=== PATIENT | female | born 1945 | race Caucasian/White ===

== ENCOUNTER 2023-12-25 08:57 | Emergency (ER) | payer MEDICARE, OTHER, SELFPAY ==
[2023-12-25] VITALS (10 sets, daily range): BP systolic 144–179; BP diastolic 65–77; PULSE 60–72; RESP 18–43; TEMP 36.9; O2SAT 96–99; BMI 30.8
--- NOTE | 2023-12-25 09:11 | DI.CT.S_ITS ---
PROCEDURE: CT CERVIAL SPINE without CON INDICATIONS: pain s/p syncopal episode TECHNIQUE: 3 mm thick sections acquired through the levels of interest. Sagittal and coronal reformats were then constructed. For radiation dose reduction, the following was used: automated exposure control. COMPARISON: None. FINDINGS: Image quality: Excellent. Bones: Cervical spine alignment is anatomic. No acute fracture or dislocation. No suspicious intraosseous lesions. Loss of disc height, degenerative endplate changes and bilateral uncovertebral hypertrophic changes are noted throughout cervical spine more notably at C6-7 level. Soft tissues: Os paraspinous soft tissue abnormalities. No neck soft tissue abnormalities. The included portion of thyroid gland is within normal limits. Bilateral lung apices show no pneumothorax. IMPRESSION: 1. No acute cervical spine fracture or dislocation. 2. [id number] degenerative disc disease throughout cervical spine as above. Dictated by: Edvin Rizzo M.D. on 12/25/2023 at 9:59 Approved by: Edvin Rizzo M.D. on 12/25/2023 at 10:01
--- NOTE | 2023-12-25 09:12 | DI.CT.S_ITS ---
PROCEDURE: CT HEAD/BRAIN WO CON INDICATIONS: head strike to back of head s/p syncope TECHNIQUE: Noncontrast 4.5 mm thick angled axial sections acquired from the foramen magnum to the vertex, with coronal and sagittal reformats. For radiation dose reduction, the following was used: automated exposure control, adjustment of mA and/or kV according to patient size. COMPARISON: None. FINDINGS: Image quality: Diagnostic. CSF spaces: Basal cisterns are patent. No extra-axial fluid collections. The ventricles are symmetric in size and shape. Brain: No intracranial bleeds or masses. There is cerebral volume loss for age, with resultant ventricular and sulcal prominence. There are periventricular and deep white matter chronic small vessel ischemic changes. There is intracranial internal carotid artery atherosclerosis. Skull and face: Posterior high parietal scalp hematoma and swelling is seen. Calvarium and visualized facial bones appear intact, without suspicious lesions. Sinuses: Visualized sinuses and mastoids are clear. IMPRESSION: 1. No acute intracranial pathology. 2. Age related volume loss and moderate white matter chronic small vessel ischemic changes. 3. Posterior high parietal scalp hematoma and swelling. No acute skull fracture. Dictated by: Edvin Rizzo M.D. on 12/25/2023 at 9:57 Approved by: Edvin Rizzo M.D. on 12/25/2023 at 9:58
--- NOTE | 2023-12-25 09:12 | DI.RAD.S_ITS ---
PROCEDURE: XR CHEST 1V INDICATIONS: syncope TECHNIQUE: One view of the chest was acquired. COMPARISON: None. FINDINGS: Surgical changes and devices: None. Lungs and pleura: Lungs are clear. No pleural effusions or pneumothorax. Mediastinum: Mediastinal contours appear normal. Heart size is enlarged. Bones and chest wall: No suspicious bony lesions. Overlying soft tissues appear unremarkable. IMPRESSION: No acute cardiopulmonary pathology. Dictated by: Edvin Rizzo M.D. on 12/25/2023 at 10:02 Approved by: Edvin Rizzo M.D. on 12/25/2023 at 10:04
--- NOTE | 2023-12-25 09:14 | ED_ITS ---
HPI - Syncope General Chief Complaint: Syncope Stated Complaint: Syncope, Head lac Time Seen by Provider: 12/25/23 08:58 History of Present Illness HPI narrative: patient with a past medical history of scleroderma, comes into the ED via EMS from home for evaluation of syncopal episode. Patient states that she was in the bath tub about to take a shower when she syncopized. She states that she awoke in the bathroom. Family members helped her get up. She has not on any blood thinners, she denies any presyncopal symptoms. Denies any visual disturbances chest pain shortness breath fever chills nausea vomiting abdominal pain or any other GI/ symptoms at this time. At time of initial evaluation patient is alert and oriented x3, she is following all commands appropriately. she states that this has never happened in the past. Related Data Previous Rx's Medication Instructions Recorded metformin 500 mg tablet 500 mg PO DAILY #14 tabs 12/25/23 Allergies Allergy/AdvReac Type Severity Reaction Status Date / Time Carbamates Allergy Verified 12/25/23 11:31 Cephalosporins Allergy Verified 12/25/23 11:31 codeine Allergy Verified 12/25/23 11:31 diphenhydramine Allergy Verified 12/25/23 11:31 lidocaine Allergy Verified 12/25/23 11:31 morphine Allergy Verified 12/25/23 11:31 NSAIDS (Non-Steroidal Allergy Verified 12/25/23 11:31 Anti-Inflamma oseltamivir Allergy Verified 12/25/23 11:31 penicillin G Allergy Verified 12/25/23 11:31 Review of Systems Review of Systems Narrative: HEENT: Denies headache, eye drainage, eye irritation, head trauma, sore throat, voice change Cardiovascular: Denies any chest pain, palpitations, shortness of breath, tachycardia Respiratory: Denies any shortness of breath, cough, wheeze, stridor GI/: Denies any abdominal pain, nausea, vomiting, diarrhea, bright red blood per rectum, melanotic stools, urinary frequency, urinary retention, dysuria, hematuria MSK: Denies any joint pain, muscle pains, swelling Skin: Denies any rashes, lesions, discoloration Neuro: Denies any headache, lightheadedness, dizziness,weakness, Positive for syncope Psych: Denies SI/HI Patient History Social History Smoking Status: Never smoker Exam Narrative Exam Narrative: General: Cooperative, comfortable, well-developed, not in acute distress HEENT: Normocephalic, PERRLA, normal sclera, eyelids normal, patient with 1 cm laceration noted to the back of the head, not actively bleeding, no other palpable step-off gross deformities or any other signs of trauma Neck: Active full range of motion, atraumatic Chest: Normal to inspection, negative crepitus, no overlying erythema ecchymosis Respiratory: Normal respiratory effort, not in acute respiratory distress, clear to auscultation bilaterally negative cough, wheeze, tachypnea, rhonchi, rales Cardiology: Regular rate rhythm negative gallop, murmur, rubs GI/: Normal to inspection, soft, nonrigid, no tenderness to palpation, exam deferred MSK: Full range of active range of motion of all 4 extremities, patient without any tenderness to palpation of any bony prominences, moving all 4 extremities spontaneously neurovascular intact all compartments soft Skin: No rashes lesions noted Neuro: Alert awake oriented x3, moves all 4 extremities spontaneously, cranial nerves intact, able to answer all questions appropriately follows commands appropriately Psych: Cooperative, negative suicidal or homicidal ideations Initial Vital Signs Initial Vital Signs: Vital Signs Pulse Rate 69 12/25/23 09:04 Respiratory Rate 24 12/25/23 09:04 Blood Pressure 175/77 H 12/25/23 09:04 Pulse Oximetry 98 12/25/23 09:04 Procedures Laceration Repair Laceration 1: Time of procedure: 12:51 Site: scalp Size (cm): 3 Description: linear Skin layer closed with: other ( cory (4)) Course Course Course Narrative: patient was re-evaluated, no new complaints at this time, laceration repair was performed of the posterior head, 3 cm laceration was noted 4 cory were placed. Patient with low Parkman syncope score, patient with out any acute findings at this time, blood glucose was noted to be elevated, consistent with new onset diabetes, patient will be started on metformin and instructed to follow up outpatient with PCP for continued evaluation treatment of this. I did discuss possible need for admission given patient new to the area, however she states that she would prefer to follow-up outpatient. She was given strict return precautions and agrees to being discharged home with outpatient follow- up. Orders Ordered: ED Orders 12/25/23 09:10 Complete Blood Count AUTO DIFF Stat Comprehensive Metabolic Panel Stat Prothrombin Time INR Stat Troponin I Stat 12/25/23 09:11 CT cervical spine w con Stat EKG-12 Lead Stat 12/25/23 09:12 CT head/brain wo con Stat XR chest 1V Stat 12/25/23 10:36 Urinalysis Screen (Dip Only) Stat Sodium Chloride (Normal Saline 0.9%) 1,000 mls @ 150 mls/hr IV CONT VALERIANO Last Admin: 12/25/23 10:17 Dose: 150 mls/hr Documented By: RB Discontinued Medications Lidocaine/Epinephrine (Lidocaine 1% W/Epi) 4 ml INJ INTRA-OP ONE Stop: 12/25/23 10:53 Last Admin: 12/25/23 12:42 Dose: Not Given Documented By: IRAM Vital Signs Vital signs: Vital Signs - 8 hr 12/25/23 09:04 12/25/23 09:04 12/25/23 09:07 Temperature 98.4 F Pulse Rate 69 69 Respiratory Rate 24 18 Blood Pressure 175/77 H 175/77 H Pulse Oximetry 98 98 Oxygen Delivery Method Room Air 12/25/23 09:30 12/25/23 09:31 12/25/23 10:00 Temperature Pulse Rate 72 63 Respiratory Rate 24 27 H Blood Pressure 160/70 H Pulse Oximetry 97 99 Oxygen Delivery Method 12/25/23 10:30 12/25/23 10:36 12/25/23 10:36 Temperature Pulse Rate 62 64 Respiratory Rate 43 H 26 H Blood Pressure 179/71 H Pulse Oximetry 99 Oxygen Delivery Method 12/25/23 11:00 12/25/23 11:01 12/25/23 11:01 Temperature Pulse Rate 60 60 Respiratory Rate 22 21 Blood Pressure 144/67 H Pulse Oximetry 97 96 Oxygen Delivery Method Room Air 12/25/23 11:30 12/25/23 11:30 Temperature Pulse Rate 60 Respiratory Rate 22 Blood Pressure 158/65 H Pulse Oximetry 97 Oxygen Delivery Method MDM - Syncope Differential Diagnosis Differential diagnosis: Likely vasovagal syncope, complete atrioventricular block, subarachnoid hemorrhage and dehydration Condition is:: Improved Lab Data 12/25/23 09:10 12/25/23 09:10 Labs: Lab Results 12/25/23 12/25/23 Range/Units 09:10 10:36 WBC 8.0 (4.5-11.0) X10^3/uL RBC 4.54 (4.0-5.2) X10^6/uL Hgb 11.4 L (12.0-16.0) g/dL Hct 35.4 L (36-46) % MCV 77.9 L (80-100) fL MCH 25.1 L (26-34) PG MCHC 32.2 (30-36) % RDW 15.6 H (11.6-14.8) % Plt Count 327 (150-400) X10^3/uL Neut % (Auto) 62.9 (50-75) % Lymph % (Auto) 25.7 (25-40) % [place] % (Auto) 6.8 (3-14) % Eos % (Auto) 3.7 (2-4) % Baso % (Auto) 0.9 (0-2) % Neut # (Auto) 5000 (4576-6775) /uL Lymph # (Auto) 2000 (5267-1849) /uL [place] # (Auto) 500 (0-900) /uL Eos # (Auto) 300 (0-450) /uL Baso # (Auto) 100 (0-100) /uL PT 11.9 (9.4-12.5) SECONDS INR 1.0 (0.9-1.3) Sodium 136 L (137-145) mmol/L Potassium 4.1 (3.4-5.1) mmol/L Chloride 104 (98-107) mmol/L Carbon Dioxide 24 (22-32) mmol/L BUN 19 H (7-17) mg/dL Creatinine 0.93 (0.52-1.04) mg/dL Estimated GFR > 60 (>60) mL/min BUN/Creatinine Ratio 20.4 (6-22) Glucose 360 H (80-110) mg/dL Calcium 8.8 (8.4-10.2) mg/dL Total Bilirubin 0.4 (0.2-1.3) mg/dL AST 21 (14-36) IU/L ALT 19 (<35) IU/L Alkaline Phosphatase 114 (38-126) U/L Troponin I < 0.012 (0.01-0.034) ng/mL Total Protein 6.7 (6.3-8.2) g/dL Albumin 3.9 (3.5-5.0) g/dL Globulin 2.8 (1.7-4.1) g/dL Albumin/Globulin Ratio 1.4 (1.0-2.8) Urine Color Yellow Urine Appearance Clear Urine pH 5.5 (4.5-8.0) Ur Specific [place] 1.015 (1.000-1.035) Urine Protein Negative (Negative) Urine Glucose (UA) 3+ H (Negative) g/dL Urine Ketones Negative (NEGATIVE) Urine Occult Blood Negative (Negative) Urine Nitrate Negative (Negative) Urine Bilirubin Negative (NEGATIVE) Urine Urobilinogen 0.2 (0.2) E.U./dL Ur Leukocyte Esterase Negative (NEGATIVE) Point of Care Testing Glucose POC 359 Urine Dip Bedside Urine Glucose 1000 mg/dl Bedside Urine Bilirubin - Negative Bedside Urine Ketone - Negative Urine Specific [place] 1.020 Bedside Urine Occult Blood - Negative Bedside Urine pH 5.5 Bedside Urine Protein - Negative Bedside Urine Urobilinogen - Negative Bedside Urine Nitrite - Negative Bedside Urine Leukocytes - Negative Esterase ECG Data Attestation: I personally reviewed and interpreted this ECG as follows: Interpretation: EKG interpreted by ED physician sinus at 68 beats per minute, QTC 463, normal axis nonspecific ST changes no STEMI MDM Narrative Medical decision making narrative: patient is a 78-year-old female with past medical history of scleroderma, hypertension, comes into the ED from home via EMS for evaluation of syncopal episode, states that she was taking a shower and had a syncopal episode, states that she woke up on the floor, at initial evaluation patient is alert and oriented x3 answers all questions appropriately moves all 4 extremities spontaneously does have a 3 cm laceration to the back at the had not actively bleeding was repaired with [address] scan of head and neck without any acute findings of intracranial hemorrhage, or cervical neck fractures. Lab work was unremarkable, patient with low Parkman syncope score. patient was noted to have elevated glucose in the 300s, patient states that she does not have a history of diabetes, however given elevated random blood glucose meeting criteria for diabetes will treat for diabetes, sent home with 500 mg metformin b.i.d. and instructed to follow up with PCP and Cardiology for continued evaluation treatment of her symptoms. Patient was given strict return precautions he verbalized understanding of this, did offer patient admission however she states that she would prefer to go home, I informed risks and benefits of this change decision-making was performed and patient will be discharged home with outpatient follow-up Discharge Plan Departure Patient Disposition: Home Clinical Impression: Syncope and collapse, Hyperglycemia Closed head injury Qualifiers: Encounter type: initial encounter Qualified Code(s): S09.90XA - Unspecified injury of head, initial encounter Laceration of head Qualifiers: Encounter type: initial encounter Location of open wound of head: scalp Foreign body presence: without foreign body Qualified Code(s): S01.01XA - Laceration without foreign body of scalp, initial encounter Activity Restrictions/Additional Instructions: Please follow-up with primary care and Cardiology for continued evaluation treatment of your symptoms, you have 4 cory that need to be removed in about 7 days Please read the discharge instructions sheet carefully and bring all papers to all doctor follow-up visits, as it may contain information that your doctor may want to see. Disease processes change and evolve, if your symptoms worsen or if you develop any new symptoms that are concerning to you please return for evaluation. Your evaluation today does not show any evidence of any life- threatening/serious illnesses requiring admission to the hospital or surgery. Please follow-up with your doctor for re-evaluation in approximately 1 day. Seek immediate medical attention for any worrisome symptoms. Prescriptions: New metformin 500 mg tablet 500 mg PO DAILY Qty: 14 0RF Stand Alone Forms: Patient Portal/API
--- NOTE | 2023-12-25 09:20 | EKG_ITS ---
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
[2023-12-25 09:21] LABS: Add Manual Diff / Slide Review NO; Basophils Absolute Auto 100 /uL (0-100); Basophils Percent Auto 0.9 % (0-2); Eosinophils Absolute Auto 300 /uL (0-450); Eosinophils Percent Auto 3.7 % (2-4); Hematocrit 35.4 % (36-46); Hemoglobin 11.4 g/dL (12.0-16.0); Lymphocytes Absolute Auto 2000 /uL (1100-4500); Lymphocytes Percent Auto 25.7 % (25-40); Mean Corpuscular HGB Conc 32.2 % (30-36); Mean Corpuscular Hemoglobin 25.1 PG (26-34); Mean Corpuscular Volume 77.9 fL (80-100); Monocytes Absolute Auto 500 /uL (0-900); Monocytes Percent Auto 6.8 % (3-14); Neutrophils Absolute Auto 5000 /uL (1500-7000); Neutrophils Percent Auto 62.9 % (50-75); Platelet Count 327 X10^3/uL (150-400); Red Blood Cell Count 4.54 X10^6/uL (4.0-5.2); Red Cell Distribution Width 15.6 % (11.6-14.8)
[2023-12-25 09:28] LABS: Prothrombin Time 11.9 SECONDS (9.4-12.5)
--- NOTE | 2023-12-25 09:33 | PC.NURSE ---
Patient left department with x-ray tech.
[2023-12-25 09:34] LABS: Alanine Aminotransferase 19 IU/L (<35); Albumin 3.9 g/dL (3.5-5.0); Albumin Globulin Ratio 1.4 (1.0-2.8); Alkaline Phosphatase 114 U/L (38-126); Aspartate Aminotransferase 21 IU/L (14-36); BUN Creatinine Ratio 20.4 (6-22); Bilirubin Total 0.4 mg/dL (0.2-1.3); Blood Urea Nitrogen 19 mg/dL (7-17); Calcium 8.8 mg/dL (8.4-10.2); Carbon Dioxide 24 mmol/L (22-32); Chloride 104 mmol/L (98-107); Estimated Glomerular Filt Rate > 60 mL/min (>60); Globulin 2.8 g/dL (1.7-4.1); Glucose 360 mg/dL (80-110); HEMOLYSIS < 15 (0-50); Potassium 4.1 mmol/L (3.4-5.1); Sodium 136 mmol/L (137-145); Total Protein 6.7 g/dL (6.3-8.2)
[2023-12-25 09:45] LABS: Troponin I < 0.012 ng/mL (0.01-0.034)
[2023-12-25] MEDS: SODIUM CHLORIDE 0.9% 1,000 ML 150 ML IV (10:17)
[2023-12-25 10:57] LABS: Appearance Urine UA CLEAR; Bilirubin Urine UA NEGATIVE (NEGATIVE); Color Urine UA YELLOW; Glucose Urine UA 3+ g/dL (Negative); Ketones Urine UA NEGATIVE (NEGATIVE); Leukocyte Esterase Urine UA NEGATIVE (NEGATIVE); Nitrite Urine UA NEGATIVE (Negative); Occult Blood Urine UA NEGATIVE (Negative); Protein Urine UA NEGATIVE (Negative); Specific Gravity Urine UA 1.015 (1.000-1.035); Urobilinogen Urine UA 0.2 E.U./dL (0.2)
[2023-12-25 10:59] LABS: pH Urine UA 5.5 (4.5-8.0)
--- NOTE | 2023-12-26 11:59 | CM.SWNOTE ---
ED UNDERGROUND HEAVY EQUIPMENT OPERATOR Note: UNDERGROUND HEAVY EQUIPMENT OPERATOR was consulted after pt was discharged from the ED to assist with establishing with a new PCP and a cardiology referral. UNDERGROUND HEAVY EQUIPMENT OPERATOR reviewed chart and found that pt had an appt scheduled as a new patient with Dr. Koki Fragoso on 12/29/2023. UNDERGROUND HEAVY EQUIPMENT OPERATOR called pt and left a voice message, providing extension for pt to call if she has any more questions re: establishing PCP. Plan: Pt discharged home from ED on 12/25/2023. Pt to follow up with new PCP and outpatient cardiology referral. PARTH Pagan
== END 2023-12-25 12:55 | disposition home or self-care (01) ==
PROVIDERS: Emergency Provider Student in an Organized Health Care Education/Training Program
DX: S01.01XA Laceration without foreign body of scalp, initial encounter (principal); S09.90XA Unspecified injury of head, initial encounter; R55 Syncope and collapse; R73.9 Hyperglycemia, unspecified
CPT/HCPCS: 12002; 36415; 70450; 71045; 72126; 80053; 81003; 82962; 84484; 85025; 85610; 93005; 96360; 96361; 99284; 99285

== ENCOUNTER → 2023-12-29 10:17 | Outpatient (CLI) | payer MEDICARE, OTHER, SELFPAY ==
[2023-12-29 12:28] LABS: Cholesterol 251 mg/dL (140-199); HDL Cholesterol 38 mg/dL (40-60); LDL Cholesterol Calculated 144 mg/dL (<100); Triglycerides 346 mg/dL (35-150)
[2023-12-29 12:44] LABS: Hemoglobin A1C% w Est Avg Glu 8.2 % (4.0-6.0)
[2023-12-29 12:55] LABS: TSH w/ Reflex to FT4 0.04 uIU/mL (0.47-4.68)
[2023-12-29 15:18] LABS: Free T4, Direct Thyroxine 1.07 ng/dL (0.78-2.19)
[2023-12-29 15:42] LABS: Microalbumin Urine Random 3.7 mg/dL (0-1.6)
[2023-12-29 16:26] LABS: Hep C Virus Ab w/Reflex Quant NEGATIVE s/c (NEGATIVE)
[2023-12-29 16:39] LABS: Creatinine Urine Random 376.15 mg/dL
== END ==
PROVIDERS: PCP Family Medicine; Referring Provider Family Medicine; Visit Provider Family Medicine
DX: R73.9 Hyperglycemia, unspecified (principal); E03.9 Hypothyroidism, unspecified; R55 Syncope and collapse; S09.90XA Unspecified injury of head, initial encounter
CPT/HCPCS: 36415; 80061; 82043; 82570; 83036; 84439; 84443; 86803

== ENCOUNTER → 2024-02-09 08:02 | Outpatient (CLI) | payer MEDICARE, OTHER, SELFPAY ==
--- NOTE | 2024-02-09 08:03 | DI.ECHO.S_ITS ---
[facility]+ [facility] : : [address] : : [place] : : [id number] : : Phone: [phone] Echocardiogram Report + + :Name: BHARATH HARRIS Study Date: 02/09/2024 Height: 64 in : :[facility] ReadingLocation: Weight: 165 lb : : Gender: Female BSA: 1.8 m2 : :: 1945 Age: 79 yrs BP: 121/73 mmHg: :Reason For Study: SYNCOPE : :Ordering Physician: JUAN, : :MAO Performed By: Jennifer Marcus : :Referring: MAO MARTINEZ : + + Interpretation Summary The left ventricle is normal in size and wall thickness. The left ventricular ejection fraction is normal. The ejection fraction is estimated to be 60-65%. The right ventricle is normal in size and function. There is mild tricuspid regurgitation. The right ventricular systolic pressure is estimated to be at least 19 mmHg based on an estimated right atrial pressure of 3 mm Hg. Procedure: A two-dimensional transthoracic echocardiogram with color flow and Doppler was performed. The study quality was technically adequate. There is no prior echocardiogram noted for this patient. The patient was in sinus rhythm with heart rates between 53-63 bpm during the exam. Left Ventricle: The left ventricle is normal in size and wall thickness. There is no thrombus. The ejection fraction is estimated to be 60-65%. The left ventricular ejection fraction is normal. There are no focal wall motion abnormalities. MV E/A: 0.74 Med Peak E' Andres: 4.2 cm/sec E/E' med: 17.3. No significant advanced diastolic dysfunction. Right Ventricle: The right ventricle is normal in size and function. Atria: The left atrial size is normal. Right atrial size is normal. There is no Doppler evidence for an interatrial shunt. Mitral Valve: The mitral valve is normal in structure and function. There is trace mitral regurgitation. Aortic Valve: The aortic valve is trileaflet. The aortic valve opens well. There is no aortic valve stenosis. No aortic regurgitation is present. Tricuspid Valve: The tricuspid valve is normal in structure and function. There is mild tricuspid regurgitation. The right ventricular systolic pressure is estimated to be at least 19 mmHg based on an estimated right atrial pressure of 3 mm Hg. Pulmonic Valve: The pulmonic valve leaflets are thin and pliable; valve motion is normal. There is a trace or physiologic amount of pulmonic regurgitation. Great Vessels: The aortic root is normal size. The dimensions of the ascending aorta are normal. The IVC is of normal diameter and collapses greater than 50% with a sniff. This suggests a low right atrial pressure of 3 mm Hg. Pericardium/ Pleura There is no pericardial effusion. There is no pleural effusion. MMode/2D Measurements & Calculations LVIDd: 4.9 cm LVOT diam: 2.0 cm LVIDs: 3.1 cm Ao root diam: 2.8 cm FS: 36.2 % asc Aorta Diam: 3.2 cm IVSd: 0.91 cm Ao Arch Diam (Prox Trans): 2.7 cm LVPWd: 0.93 cm LV callejas. diameter/BSA (cm/m^2): 2.7 LV sys. diameter/BSA (cm/m^2): 1.7 LA A2 area: 17.6 cm2 RA long axis: 4.7 cm LA A4 area: 15.0 cm2 RA area: 11.8 cm2 LA length (vol): 4.6 cm RA vol: 25.2 ml LA vol: 48.3 ml RA : 14.0 ml/m2 LA vol index: 26.8 ml/m2 IVC diam: 1.2 cm RVD1 (basal): 3.4 cm RVD2 (mid): 2.7 cm TAPSE: 2.0 cm Doppler Measurements & Calculations Ao V2 max: 172.1 cm/sec LVOT Max Andres: 113.0 cm/sec Ao V2 mean: 115.0 cm/sec LV V1 max P.1 mmHg Ao max P.8 mmHg LV V1 VTI: 24.9 cm Ao mean P.1 mmHg EFREN(I,D): 2.3 cm2 Ao V2 VTI: 34.8 cm EFREN(V,D): 2.1 cm2 sev ratio: 0.72 EFREN indexed to BSA (cm^2/m^2): 1.3 MV E max andres: 73.0 cm/sec TR max andres: 198.9 cm/sec MV A max andres: 99.3 cm/sec TR max P.8 mmHg MV E/A: 0.74 PA V2 max: 85.9 cm/sec Med Peak E' Andres: 4.2 cm/sec PA V2 mean: 65.3 cm/sec E/E' med: 17.3 PA mean P.8 mmHg Lat Peak E' Andres: 5.5 cm/sec PA pr(Accel): 48.2 mmHg E/E' lat: 13.2 E/e' average: 15.3 MV dec time: 0.27 sec MVA(VTI): 2.6 cm2 MV V2 mean: 45.2 cm/sec SV(LVOT): 80.4 ml MV mean P.0 mmHg MV V2 VTI: 30.6 cm Reading Physician:09:34 AM
--- NOTE | 2024-02-09 08:03 | DI.US.S_ITS ---
PROCEDURE: US CAROTID DOPPLER BI INDICATIONS: HISTORY OF SYNCOPE TECHNIQUE: Color and pulse Doppler interrogation was performed of both carotid systems, with image documentation and velocity measurements. COMPARISON: None. FINDINGS: Stenosis calculations are based on SRU (Society of Radiologists in Ultrasound) criteria. Right side: Brachial blood pressure: 120/63 mm Hg. Common carotid artery peak systolic velocity: 113 cm/sec. Internal carotid artery peak systolic velocity: 66 cm/sec. Internal carotid artery end diastolic velocity: 24 cm/sec. External carotid artery peak systolic velocity: 91 cm/sec. ICA/CCA peak systolic ratio: 0.6 . Feliz scale imaging description: No significant plaque Percent internal carotid artery stenosis: No significant stenosis. Vertebral artery: Flow direction is antegrade. Left side: Brachial blood pressure: 129/66 mm Hg. Common carotid artery peak systolic velocity: 97 cm/sec. Internal carotid artery peak systolic velocity: 122 cm/sec. Internal carotid artery end diastolic velocity: 29 cm/sec. External carotid artery peak systolic velocity: 89 cm/sec. ICA/CCA peak systolic ratio: 1.3 . Feliz scale imaging description: Mild atherosclerotic plaque. Tortuous internal carotid artery. Percent internal carotid artery stenosis: Less than 50% Vertebral artery: Flow direction is antegrade. Heterogeneous appearance of the thyroid is incidentally noted without a discrete nodule, which can be seen in the setting of prior thyroiditis. IMPRESSION: 1. Less than 50% stenosis of the left internal carotid artery. 2. No significant stenosis of the right internal carotid artery. 3. Antegrade flow in the vertebral arteries bilaterally. 4. Heterogeneous appearance of the thyroid without nodules is nonspecific but can be seen in the setting of thyroiditis. Approved by: Akil Vora M.D. on 02/09/2024 at 12:38
== END ==
PROVIDERS: PCP Family Medicine; Referring Provider Family Medicine; Visit Provider Family Medicine
DX: Z87.898 Personal history of other specified conditions (principal); I07.1 Rheumatic tricuspid insufficiency; I65.22 Occlusion and stenosis of left carotid artery
CPT/HCPCS: 93306; 93880

== ENCOUNTER → 2024-06-07 10:56 | Outpatient (CLI) | payer MEDICARE, OTHER, SELFPAY ==
[2024-06-07 13:09] LABS: Influenza A - CEPHEID Flu A NEGATIVE (NEGATIVE); Influenza B - CEPHEID Flu B NEGATIVE (NEGATIVE); Respiratory Syncytial Virus POSITIVE (Negative)
[2024-06-07 13:10] LABS: COVID-19 CEPHEID 4-PLEX PCR Negative (Negative)
== END ==
PROVIDERS: PCP Student in an Organized Health Care Education/Training Program; Referring Provider Physician Assistant; Visit Provider Physician Assistant
DX: R05.1 Acute cough (principal)
CPT/HCPCS: 0241U

== ENCOUNTER → 2024-06-12 18:17 | Outpatient (CLI) | payer MEDICARE, OTHER, SELFPAY ==
--- NOTE | 2024-06-12 18:20 | DI.RAD.S_ITS ---
PROCEDURE: XR CHEST 2V INDICATIONS: Cough TECHNIQUE: 2 views of the chest were acquired. COMPARISON: [facility], CR, XR CHEST 1V, 12/25/2023, 9:33. FINDINGS: Surgical changes and devices: None. Lungs and pleura: Lungs are clear. No pleural effusions or pneumothorax. Mediastinum: Mediastinal contours are normal. Heart size is enlarged. Bones and chest wall: No suspicious bony abnormalities. Soft tissues appear unremarkable. IMPRESSION: No acute cardiopulmonary pathology. Dictated by: Edvin Rizzo M.D. on 06/12/2024 at 19:08 Approved by: Edvin Rizzo M.D. on 06/12/2024 at 19:09
== END ==
PROVIDERS: PCP Student in an Organized Health Care Education/Training Program; Referring Provider Physician Assistant Surgical; Visit Provider Physician Assistant Surgical
DX: R05.9 Cough, unspecified (principal); J21.0 Acute bronchiolitis due to respiratory syncytial virus; I51.7 Cardiomegaly
CPT/HCPCS: 71046

== ENCOUNTER 2024-06-14 12:30 | Emergency (ER) | payer MEDICARE, OTHER, SELFPAY ==
[2024-06-14 12:32] VITALS: BP 142/65; PULSE 85; RESP 16; TEMP 36.8; O2SAT 98; BMI 29.2
--- NOTE | 2024-06-14 13:00 | DI.RAD.S_ITS ---
PROCEDURE: XR CHEST 2V INDICATIONS: 2 weeks cough and congestion TECHNIQUE: 2 views of the chest were acquired. COMPARISON: [facility], CR, XR CHEST 2V, 06/12/2024, 18:27. FINDINGS: Surgical changes and devices: None. Lungs and pleura: Lungs are clear. No pleural effusions or pneumothorax. Mediastinum: Mediastinal contours are normal. Heart size is normal. Bones and chest wall: No suspicious bony abnormalities. Soft tissues appear unremarkable. IMPRESSION: No acute cardiopulmonary abnormality is seen. Approved by: Carrie Bowers M.D.,Ph.D. on 06/14/2024 at 13:35
--- NOTE | 2024-06-14 13:29 | PC.NURSE ---
Patient returns due to increasing coughing and a greater amount of green mucus when she cough. Patient denies shortness of breath and is able to ambulate independently without noted distress.
--- NOTE | 2024-06-14 13:38 | ED_ITS ---
<Statement entered by Kyler Messer DO - 06/14/24 14:28> Dr. Messer: I was immediately available in the department for consultation. I did not actually see the patient. HPI - Recheck/Abnormal Lab/Rx General Chief Complaint: Recheck/Abnormal Lab/Rx Stated Complaint: feeling sick, doesn't know whats wrong Time Seen by Provider: 06/14/24 13:26 Source: patient Mode of arrival: Ambulatory History of Present Illness HPI narrative: Ms. Coello is a pleasant 79-year-old female with a past medical history of scleroderma, hypertension, Raynaud's, GERD who presents to the emergency department for upper respiratory symptoms x2 weeks. Patient states while she was traveling in [place]/[facility] she started developing a cough, sinus congestion. [place] returned to the [place] and was seen in the walk-in clinic on 06/07/2024 for these persistent symptoms and was diagnosed with RSV. She returned for worsening symptoms on 06/12/2024 and had a chest x-ray which was negative. She has been taking nasal Flonase, Zyrtec, cough medicine but her sinus congestion and cough persist. She is having green nasal discharge and sputum. No fevers, chest pain, nausea, vomiting, abdominal pain. She is hoping to travel to [place] in 2 days and was concerned for her symptoms which are not getting better. No history of lung disease, nonsmoker. Related Data Home Medications Medication Instructions Recorded Confirmed famotidine 20 mg tablet 20 mg PO DAILY 12/29/23 06/12/24 pantoprazole 40 mg tablet,delayed 40 mg PO BID 12/29/23 06/12/24 release baclofen 10 mg tablet 10 mg PO BEDTIME 05/18/24 06/12/24 Previous Rx's Medication Instructions Recorded nifedipine 30 mg tablet,extended 30 mg PO DAILY #30 tabs 05/18/24 release benzonatate 200 mg capsule 200 mg PO TID PRN cough #30 caps 06/07/24 cetirizine 10 mg chewable tablet 10 mg PO DAILY #14 tabs 06/07/24 (Children's Zyrtec Allergy) fluticasone propionate 50 1 spray intranasal DAILY #16 grams 06/07/24 mcg/actuation nasal spray,suspension (Flonase Allergy Relief) guaifenesin 1,200 mg tablet, 1,200 mg PO Q12H #30 tabs 06/07/24 extended release 12 hr doxycycline hyclate 100 mg capsule 100 mg PO BID 5 days #10 caps 06/14/24 Allergies Allergy/AdvReac Type Severity Reaction Status Date / Time Carbamates Allergy Verified 06/07/24 10:46 Cephalosporins Allergy Verified 06/07/24 10:46 codeine Allergy Verified 06/07/24 10:46 diphenhydramine Allergy Verified 06/07/24 10:46 lidocaine Allergy Verified 06/07/24 10:46 morphine Allergy Verified 06/07/24 10:46 NSAIDS (Non-Steroidal Allergy Verified 06/07/24 10:46 Anti-Inflamma oseltamivir Allergy Verified 06/07/24 10:46 penicillin G Allergy Verified 06/07/24 10:46 Review of Systems Review of Systems ROS Unobtainable: All systems reviewed & are unremarkable except as noted in HPI and below Patient History Medical History Vision disorder Hearing decreased Abnormal Pap smear of cervix (~1974) Hyperglycemia Dysphagia Raynaud disease Scleroderma Surgical History History of live Family History Father Hypertension Social History Smoking Status: Never smoker Smoking Status: Never smoker Exam Narrative Exam Narrative: GENERAL: 79 year old patient appears stated age. Well-developed patient, in no acute distress. HEAD: Atraumatic. Normocephalic. EYES: PERRL. Extraocular motions intact. No scleral icterus. No injection or drainage. ENT: Hearing aids removed, normal TMs bilaterally. Nose without bleeding, purulent drainage. Bilateral nasal congestion and tenderness to palpation of maxillary sinuses. Throat without erythema, tonsillar hypertrophy or exudate. Airway patent. NECK: Trachea midline. Cervical ROM intact. CARDIOVASCULAR: Regular rate and rhythm. RESPIRATORY: ?Nonlabored respirations. ?Occasional cough. Speaking in clear, full sentences. ?Clear to auscultation. Breath sounds equal bilaterally. No wheezes, rales, or rhonchi. ? EXTREMITIES: No edema or joint tenderness. NEURO: AOx3. ?Clear speech. ?Moves all 4 extremities appropriately. SKIN: No rash or erythema of visible areas Initial Vital Signs Initial Vital Signs: Vital Signs Temperature 98.3 F 06/14/24 12:32 Pulse Rate 85 06/14/24 12:32 Respiratory Rate 16 06/14/24 12:32 Blood Pressure 142/65 H 06/14/24 12:32 Pulse Oximetry 98 06/14/24 12:32 Oxygen Delivery Method Room Air 06/14/24 12:32 Course Orders Ordered: ED Orders 06/14/24 13:00 XR chest 2V Stat Vital Signs Vital signs: Vital Signs - 8 hr 06/14/24 12:32 Temperature 98.3 F Pulse Rate 85 Respiratory Rate 16 Blood Pressure 142/65 H Pulse Oximetry 98 Oxygen Delivery Method Room Air MDM - Recheck/Abnormal Lab/Rx Medical Records Attestation: I reviewed the patient's medical records. Imaging Data Chest x-ray: Radiologist's Impression: PROCEDURE: XR CHEST 2V INDICATIONS: 2 weeks cough and congestion TECHNIQUE: 2 views of the chest were acquired. COMPARISON: [facility], , XR CHEST 2V, 06/12/2024, 18:27. FINDINGS: Surgical changes and devices: None. Lungs and pleura: Lungs are clear. No pleural effusions or pneumothorax. Mediastinum: Mediastinal contours are normal. Heart size is normal. Bones and chest wall: No suspicious bony abnormalities. Soft tissues appear unremarkable. IMPRESSION: No acute cardiopulmonary abnormality is seen. [facility] Narrative Medical decision making narrative: 79-year-old female with a past medical history of scleroderma, hypertension, Raynaud's, GERD who presents to the emergency department for upper respiratory symptoms x2 weeks. Differential diagnosis includes but is not limited to sinusitis, pneumonia, viral URI, bronchitis, etc. On exam the patient is in no acute distress, nontoxic appearing, vital signs appropriate. She has in no respiratory distress, lung cervantes clear to auscultation however with the occasional dry cough. Nasal congestion and bilateral maxillary sinus tenderness present. On 06/07/2024 she was diagnosed with RSV at the walk-in Clinic, on 06/12/2024 she had a negative chest x-ray. Despite using all prescribed regimens her symptoms are only getting worse. Repeat chest x-ray ordered today confirms negative for pneumonia. I am concerned she is developed secondary bacterial sinusitis from previous viral syndrome as symptoms have been present for now 2 weeks and she is complaining of a lot of facial pressure. She is allergies to penicillin cephalosporins however she is unsure of the reaction. Out of an abundance of caution we will treat with doxycycline b.i.d. x5 days for bacterial sinusitis. Recommended continuing Flonase, Zyrtec, cough medicine in addition to rest, hydration. Antibiotics sent to patient's pharmacy of choice. She verbalized understanding of all information and is agreeable to plan. She is stable for discharge home. Discharge Plan Departure Patient Disposition: Home Clinical Impression: Sinusitis Qualifiers: Sinusitis location: unspecified location Chronicity: acute Recurrence: non- recurrent Qualified Code(s): J01.90 - Acute sinusitis, unspecified RSV (respiratory syncytial virus infection) Qualifiers: RSV infection type: unspecified Qualified Code(s): B33.8 - Other specified viral diseases Instructions: DI for Sinusitis Activity Restrictions/Additional Instructions: Thank you for coming to the emergency department. We repeated a chest x-ray today which confirmed you do not have pneumonia. However since you have been having sinus congestion and drainage for 2 weeks we are treating you for a bacterial sinus infection with antibiotics. Please complete the full course of antibiotics and continue using the Flonase nasal spray and Zyrtec and cough medicine your previously prescribed. Please rest, hydrate, follow up with your primary care doctor. Return to the ED if you develop any new or worsening symptoms. Please follow up with your primary care doctor within the next 2-3 days for ER follow-up. (If you do not have a PCP you can call [phone]. ?to schedule an appointment with an [facility] Primary Care Provider) IF YOU DEVELOP ANY NEW OR WORSENING SYMPTOMS, RETURN TO THE ER! Please read the attached instructions, they highlight more specific treatments and interventions for you at home. Thank you for letting me participate in your care, Mary Salamanca PA-C Prescriptions: New doxycycline hyclate 100 mg capsule 100 mg PO BID 5 Days Qty: 10 0RF No Action baclofen 10 mg tablet 10 mg PO BEDTIME nifedipine 30 mg tablet extended release 30 mg PO DAILY Qty: 30 3RF cetirizine [Children's Zyrtec Allergy] 10 mg tablet,chewable 10 mg PO DAILY Qty: 14 0RF guaifenesin 1,200 mg tablet extended release 12hr 1,200 mg PO Q12H Qty: 30 0RF benzonatate 200 mg capsule 200 mg PO TID PRN (Reason: cough) Qty: 30 0RF fluticasone propionate [Flonase Allergy Relief] 50 mcg/actuation spray,suspension 1 spray intranasal DAILY Qty: 16 0RF Rx Instructions: administer into each nostril famotidine 20 mg tablet 20 mg PO DAILY pantoprazole 40 mg tablet,delayed release (DR/EC) 40 mg PO BID Referrals: Orly Bonner MD [Primary Care Provider] - Stand Alone Forms: Patient Portal/API/Survey
[2024-06-14 14:18] VITALS: BP 138/67; PULSE 82; RESP 18; TEMP 36.7; O2SAT 98
== END 2024-06-14 14:19 | disposition home or self-care (01) ==
PROVIDERS: Emergency Provider Physician Assistant; PCP Student in an Organized Health Care Education/Training Program
DX: J01.90 Acute sinusitis, unspecified (principal); B33.8 Other specified viral diseases; R09.81 Nasal congestion; I10 Essential (primary) hypertension; M34.9 Systemic sclerosis, unspecified; I73.00 Raynaud's syndrome without gangrene
CPT/HCPCS: 71046; 99281; 99283

== ENCOUNTER → 2024-09-26 16:03 | Outpatient (CLI) | payer MEDICARE, OTHER, SELFPAY ==
--- NOTE | 2024-09-26 16:09 | DI.MRI.S_ITS ---
PROCEDURE: MR HEAD/BRAIN WO CON INDICATIONS: HX OF BRAIN INJURY TECHNIQUE: Noncontrast axial T1 spin echo, axial T2 fast spin echo, sagittal and axial FLAIR, coronal T2 fast spin echo, axial gradient echo, axial diffusion and ADC through the brain. COMPARISON: None. FINDINGS: CSF Spaces: Basal cisterns are patent. No extra-axial fluid collections. Ventricles are normal in size and shape. Brain: No intracranial masses or hemorrhage. Feliz/white matter interface is normal. Brainstem appears normal. Diffusion-weighted sequence is unremarkable without evidence of acute infarct. Normal intravascular flow voids are present. Moderate atrophy and multifocal as well as confluent white matter chronic ischemic change Skull and face: Calvarium has normal marrow signal. Orbits appear normal. Sinuses: Sinuses and mastoids are clear. IMPRESSION: Atrophy and chronic ischemic change without acute infarct, hemorrhage or mass lesion Approved by: Medardo Brambila M.D. on 09/26/2024 at 18:17
== END ==
LOC: MRI 16:05
PROVIDERS: PCP Student in an Organized Health Care Education/Training Program; Referring Provider Student in an Organized Health Care Education/Training Program; Visit Provider Student in an Organized Health Care Education/Training Program
DX: Z09 Encounter for follow-up examination after completed treatment for conditions other than malignant neoplasm (principal); Z87.820 Personal history of traumatic brain injury
CPT/HCPCS: 70551